=== PATIENT | female | born 1990 | race Caucasian/White ===

== ENCOUNTER 2017-03-19 15:09 | Emergency (ER) | payer OTHER ==
[~2017-03-19] VITALS: Ht 157.5 cm; Wt 80.3 kg
[2017-03-19 16:03] VITALS: BP 128/84
== END 2017-03-19 16:03 | disposition home or self-care (01) ==
LOC: ED 15:09
DX: L02.412 Cutaneous abscess of left axilla (principal); Z88.0 Allergy status to penicillin

== ENCOUNTER 2017-03-22 10:23 | Emergency (ER) | payer OTHER ==
[2017-03-22 11:14] VITALS: BP 109/71
== END 2017-03-22 11:14 | disposition home or self-care (01) ==
LOC: ED 10:23
DX: Z48.01 Encounter for change or removal of surgical wound dressing (principal)

== ENCOUNTER 2018-05-13 07:39 | Emergency (ER) | payer OTHER ==
[~2018-05-13] VITALS: Ht 157.5 cm; Wt 85.3 kg
[2018-05-13 07:45] VITALS: Ht 157.5 cm; Wt 85.3 kg
[2018-05-13 09:45] VITALS: BP 118/62
== END 2018-05-13 09:45 | disposition home or self-care (01) ==
LOC: ED 07:39
DX: J02.9 Acute pharyngitis, unspecified (principal); Z88.0 Allergy status to penicillin